=== PATIENT | female | born 1970 | race African-American/Black ===

== ENCOUNTER 2017-10-05 13:43 | Observation (INO) | payer MEDICAID, OTHER ==
[~2017-10-05] VITALS: Ht 170.2 cm; Wt 76.2 kg
[2017-10-05] MEDS ORDERED: PANTOPRAZOLE 40 MG TAB PO ONE (14:45)
[2017-10-05] MEDS ORDERED: ASPirin-EC 81 mg tab PO ONE (14:45)
[2017-10-05 15:04] LABS: Basophils # (auto) 0.1 uL; Eosinophils # (auto) 0 uL; Hematocrit 39.9 % (36.0-46.0); Lymphocytes # (auto) 3.8 uL; Monocytes # (auto) 0.5 uL; Neutrophils # (auto) 7.9 uL
[2017-10-05 15:07] LABS: Basophils % (auto) 0.5 % (0.0-2.0); Eosinophils % (auto) 0.3 % (0.0-7.0); Hemoglobin 12.8 g/dL (12.2-16.2); Lymphocytes % (auto) 30.7 % (10.0-50.0); Mean Corpuscular Hemoglobin 25.8 pg (28.0-32.0); Mean Corpuscular Volume 80.6 fL (80.0-100.0); Monocytes % (auto) 4.1 % (0.0-12.0); Neutrophils % (auto) 64.4 % (37.0-80.0); Nucleated Red Blood Cells % 0.3 %; Platelet Count (auto) 263 10^3/uL (140-450); Red Blood Cells 4.95 10^6/uL (4.0-5.20); Red Cell Distribution Width 15.9 % (11.8-14.3); White Blood Cell 12.2 10^3/uL (4.4-10.8)
[2017-10-05 15:25] LABS: Magnesium 1.7 mg/dL (1.6-2.6)
[2017-10-05 15:32] LABS: Alanine Aminotransferase 32 U/L (13-56); Albumin 3.2 g/dL (3.4-5.0); Alkaline Phosphatase 121 U/L (45-117); Anion Gap 11 (5-15); Aspartate Aminotransferase 22 U/L (15-37); BUN/Creatinine Ratio 14.6; Bilirubin, Total 0.5 mg/dL (0.2-1.0); Blood Urea Nitrogen 7 mg/dL (7-18); Calcium 8.7 mg/dL (8.5-10.1); Carbon Dioxide 22 mmol/L (21-32); Chloride 108 mmol/L (98-107); GFR African American 180 mL/min; GFR Non-African American 149 mL/min; Glucose 82 mg/dL (74-106); Potassium 3.8 mmol/L (3.5-5.1); Sodium 141 mmol/L (136-145); Total Protein 7.5 g/dL (6.4-8.2)
[2017-10-05 15:33] LABS: INR 0.97 (0.9-1.15); Partial Thromboplastin Time 28.5 sec (23.78-33.04); Prothrombin Time 10.4 sec (9.27-12.13)
[2017-10-05 18:06] VITALS: BP 131/70
[2017-10-05 18:07] LABS: Urine Bacteria NONE SEEN /hpf (None Seen); Urine Blood Negative /uL (Negative); Urine Mucus FEW (None Seen); Urine Specific Gravity 1.019 (1.001-1.035); Urine WBC <1 /hpf (0 - 5)
== END 2017-10-05 19:51 | disposition left against medical advice (07) | DRG 203 ==
LOC: ER 13:43 → OVERFLOW 13:44 → ER 19:51
PROVIDERS: ADMIT Family Medicine; ATTEND Family Medicine
DX: R07.2 Precordial pain (principal); F17.210 Nicotine dependence, cigarettes, uncomplicated; F41.9 Anxiety disorder, unspecified; R79.89 Other specified abnormal findings of blood chemistry
CPT/HCPCS: 36415; 71046; 80053; 81001; 82150; 83690; 83735; 84443; 84484; 85025; 85379; 85610; 85730; 93005; 99285; G0378